=== PATIENT | male | born 1970 | race Caucasian/White ===

== ENCOUNTER 2020-01-01 17:10 | Inpatient (IN) | payer OTHER ==
[~2020-01-01] VITALS: Ht 180.3 cm; Wt 111.1 kg
[2020-01-01] MEDS ORDERED: NORVASC10 MG PO (17:32)
[2020-01-01] MEDS ORDERED: MICARDIS80 MG PO (17:32)
[2020-01-01] MEDS ORDERED: TOPROL XL200 MG PO (17:32)
[2020-01-01] MEDS ORDERED: HYDROCHLOROTHIA25 MG PO (17:32)
[2020-01-01] MEDS ORDERED: GLUCOPHAGE PO (17:33)
[2020-01-03] MEDS ORDERED: METFORMIN HCL1000 MG PO (11:08)
== END 2020-01-14 21:58 | disposition home or self-care (01) | DRG 179 ==
LOC: ER 17:10 → SEC-K 01-02 08:48 → MEDJ 01-02 08:48
PROVIDERS: ADMIT Internal Medicine; ATTEND Internal Medicine
PROC: 3E0F7GC Introduction of Other Therapeutic Substance into Respiratory Tract, Via Natural or Artificial Opening (ICD-10-PCS; principal; 2020-01-02)
PROC: 8E0ZXY6 Isolation (ICD-10-PCS; 2020-01-02)
PROC: 4A12X4Z Monitoring of Cardiac Electrical Activity, External Approach (ICD-10-PCS; 2020-01-02)
PROC: 4A033R1 Measurement of Arterial Saturation, Peripheral, Percutaneous Approach (ICD-10-PCS; 2020-01-08)
PROC: 30233K1 Transfusion of Nonautologous Frozen Plasma into Peripheral Vein, Percutaneous Approach (ICD-10-PCS; 2020-01-10)
DX: U07.1 COVID-19 (principal)

== ENCOUNTER 2021-04-29 11:50 | Outpatient (CLI) | payer OTHER ==
[~2021-04-29 11:50] MED LIST: GLUCOPHAGE PO; HYDROCHLOROTHIA25 MG PO; METFORMIN HCL1000 MG PO; MICARDIS80 MG PO; NORVASC10 MG PO; TOPROL XL200 MG PO
== END 2021-04-29 12:06 | disposition home or self-care (01) ==
LOC: SONOGRAMA 11:50
DX: N20.0 Calculus of kidney (principal); N40.1 Benign prostatic hyperplasia with lower urinary tract symptoms; N52.8 Other male erectile dysfunction

== ENCOUNTER 2021-07-25 14:54 | Outpatient (CLI) | payer OTHER | END 2021-07-25 15:16 | disposition home or self-care (01) | LOC: RAD 14:54 | PROVIDERS: ATTEND Internal Medicine Cardiovascular Disease | DX: M54.2 Cervicalgia (principal); M54.6 Pain in thoracic spine ==

== ENCOUNTER 2022-05-04 12:44 | Outpatient (CLI) | payer OTHER | END 2022-05-04 12:45 | disposition home or self-care (01) | LOC: SONOGRAMA 12:44 | DX: E04.1 Nontoxic single thyroid nodule (principal) ==

== ENCOUNTER 2024-06-23 19:46 | Emergency (ER) | payer OTHER ==
[~2024-06-23] VITALS: Ht 180.3 cm; Wt 101.6 kg
[2024-06-23] MEDS ORDERED: STEGLATRO15 MG (20:09)
== END 2024-06-23 22:28 | disposition home or self-care (01) ==
LOC: ER 19:48
DX: J06.9 Acute upper respiratory infection, unspecified (principal); Z20.822 Contact with and (suspected) exposure to COVID-19